=== PATIENT | male | born 1940 | race Caucasian/White ===

== ENCOUNTER 2017-09-16 08:43 | Emergency (ER) | payer OTHER, MEDICAID ==
[~2017-09-16] VITALS: Ht 177.8 cm; Wt 74.0 kg
[2017-09-16] MEDS ORDERED: KEPP500 PO (08:50)
[2017-09-16 09:39] LABS: BASOPHILS % 0.8 % (0.0-2.0); EOSINOPHILS % 1.4 % (0.0-5.0); HEMATOCRIT. 52.3 % (42.0-52.0); HEMOGLOBIN. 17.9 g/dL (14.0-18.0); MEAN CORPUSCULAR HEMOGLOBIN 31.2 pg (28.0-32.0); MEAN CORPUSCULAR VOLUME 91.1 fL (80.0-94.0); MEAN PLATELET VOLUME 10.3 fl (7.4-10.4); MONOCYTES % 7.7 % (2.0-8.0); NEUTROPHILS % 51.1 % (40.0-76.0); PLATELET 166 x1000/uL (130-400); RED BLOOD CELL COUNT 5.74 mill/uL (4.7-6.1); RED CELL DISTRIBUTION WIDTH 14.1 % (11.6-14.6)
[2017-09-16 09:53] LABS: CARBON DIOXIDE 20 mEq/L (21-32); CHLORIDE 101 mEq/L (98-107); ETHANOL BLOOD < 10 mg/dL; TROPONIN I < 0.02 ng/mL (0.00-0.04)
[2017-09-16] MEDS ORDERED: LEVETIRACETAM 500MG PREMIX 100 ML IV ONE (10:00)
[2017-09-16 10:59] VITALS: BP 113/90
== END 2017-09-16 12:48 | disposition home or self-care (01) ==
LOC: ER 09:11
DX: R56.9 Unspecified convulsions (principal); E11.9 Type 2 diabetes mellitus without complications; I51.7 Cardiomegaly; E78.00 Pure hypercholesterolemia, unspecified; Z90.49 Acquired absence of other specified parts of digestive tract
CPT/HCPCS: 36415; 70450; 71045; 80053; 84484; 85025; 93005; 96365; 99285; G0482; J1953